=== PATIENT | female | born 1945 | race Caucasian/White ===

== ENCOUNTER 2021-01-24 09:15 | Day surgery (SDC) | payer MEDICARE, BC ==
[~2021-01-24 09:15] MED LIST: FAMOTIDINE 20 MG/2 ML VIAL IV PRN; LACTATED RINGERS 1,000 ML IV SCH; LIDOCAINE 1% (10MG/ML) FOR IV START INTRADERMA PRN
[2021-01-24] MEDS ORDERED: ONDANSETRON 4 MG/2 ML VIAL ONE (09:39)
[2021-01-24 09:58] VITALS: RESP 18
[2021-01-24] MEDS: OXYMETAZOLINE 0.05% NASL SPRAY 1 SPRAY BOTTLE EA NOSTRIL PRN ×5 (10:05→10:25)
[2021-01-24] MEDS ORDERED: DEXAMETHASONE SOD PHOSPHATE 4 MG/ML 1 ML VIAL IVP ONE (10:11)
[2021-01-24] MEDS ORDERED: PROPOFOL 10 MG/ML 20 ML VIAL IV ONE (11:32)
[2021-01-24] MEDS ORDERED: GLYCOPYRROLATE 0.2 MG/ML 2 ML VIAL ONE (11:32)
[2021-01-24] MEDS ORDERED: MIDAZOLAM 2 MG/2 ML VIAL ONE (11:32)
[2021-01-24] MEDS ORDERED: SUCCINYLCHOLINE CHLORIDE 100 MG/5 ML SYR IV ONE (11:32)
[2021-01-24] MEDS ORDERED: LIDOCAINE 2% SYG (PF) 100 MG/5 ML ONE (11:32)
[2021-01-24] MEDS ORDERED: fentaNYL (PF) 50 MCG/ML 2 ML AMP ONE (11:32)
[2021-01-24] MEDS ORDERED: SODIUM CHLORIDE 0.9% 100 ML with ceFAZolin 2,000 MG IV ONE ×2 (11:36)
[2021-01-24] MEDS ORDERED: LIDOCAINE 1%-EPI 1:100,000 20 ML VIAL SQ ONE (11:49)
[2021-01-24] MEDS ORDERED: BACITRACIN ZINC 500 UNIT/GM OINT 28.4 GM TUBE TOPICAL ONE (11:58)
--- NOTE | 2021-01-24 12:18 | P.OP ---
Date of Procedure: 01/24/21 Preoperative Diagnosis: Deviated nasal septum Inferior turbinate hypertrophy Postoperative Diagnosis: Same Procedure(s) Performed: Septoplasty Outfracture and submucous resection of the inferior turbinates Anesthesia: JELANI Surgeon: Brian Huitron Estimated Blood Loss (ml): 5 Pathology: other (Nasal septal bone and cartilage) Condition: stable Disposition: PACU Indications for Procedure: Is a 75-year-old white female who has difficulties with nasal airway obstruction congestion despite medical management including steroid and antihistamine nasal sprays Operative Findings: Nasal septum deviated to the left in the cartilaginous and bony septum inferior turbinate hypertrophy bilaterally Description of Procedure: DESCRIPTION OF PROCEDURE: The patient was brought to the operative suite, placed in the supine position. The patient underwent induction of general anesthesia with oral endotracheal intubation without difficulty. The patient was prepped and draped in the usual aseptic fashion. 1% lidocaine with 1:100,000 epinephrine was infused submucosally on both sides of the nasal septum. While this was taking vasoconstrictive effect, the inferior turbinates were infractured with a Antelope elevator. Partial submucous resection of the inferior turbinates was performed with Coblation device ablating and thus removing a portion of the submucosal soft tissue. The inferior turbinates were then outfractured with a Antelope elevator. A left hemitransfixion incision was then made through the mucoperichondrial. Mucoperiosteal flap on the left elevated. Bony cartilaginous junction was disarticulated and mucoperiosteal flap on the right was elevated. Bony nasoseptal deformity were removed with Onel forceps and an inferior cartilaginous strip was removed, leaving a full 1.5 cm caudal strut. Checking intranasally, this corrected the nasal septal deformities and the hemitransfixion incision was closed with running 4-0 chromic suture. The bilateral Pearl airway splints coated in bacitracin ointment were placed in the nasal cavities and sutured transseptally with 4-0 nylon suture. The patient was then suctioned in an orogastric fashion. The patient was allowed to emerge from general anesthesia, having tolerated the procedure well and was extubated in the operating suite, transferred to postoperative recovery area in satisfactory condition.
[2021-01-24 12:27] VITALS: TEMP 97.9
[2021-01-24 13:49] VITALS: BP 155/68; PULSE 72
== END 2021-01-24 14:10 | disposition home or self-care (01) ==
LOC: OR 09:15
PROVIDERS: ATTEND Otolaryngology
DX: J34.2 Deviated nasal septum (principal); J34.3 Hypertrophy of nasal turbinates; I10 Essential (primary) hypertension; Z79.899 Other long term (current) drug therapy; J30.89 Other allergic rhinitis
CPT/HCPCS: 88300; 30520; 30140; J2250; J1100; J2405; J0690; J2001; J3010; J0330; J2704

== ENCOUNTER 2021-03-01 16:10 | Observation (INO) | payer MEDICARE, BC ==
[2021-03-01] MEDS ORDERED: SODIUM CHLORIDE 0.9% 1,000 ML IV ONE ×2 (18:41→20:41)
--- NOTE | 2021-03-01 18:53 | ED ---
General Adult HPI - General Chief complaint: Recheck/Abnormal Lab/Rx Stated complaint: Hypertension, confusion, not eating Time Seen by Provider: 03/01/21 16:30 Source: patient, family, RN notes reviewed, old records reviewed Mode of arrival: ambulatory Limitations: no limitations - History of Present Illness Initial comments: This is a 75-year-old female who presents emergency department with family. Family states that the patient is altered mentally and has been that way for 2 months. Family states it is been getting progressively worse. Another family member states she had sinus surgery back in October never since then she's been slightly altered and getting progressively worse. There also noted that the patient has been chronically nauseated so she is not eating or drinking and has lost about 15 pounds in the last 2 months. Patient herself says there is no area of pain but does states she doesn't feel like herself but is having diffic ulty explaining what doesn't feel right. Patient denies any chest pain or difficulty breathing shortness of breath. Patient denies any abdominal pain patient denies any recent vomiting or diarrhea. Patient did have a urinary tract infection in the last month or so but was treated for but never rechecked. Family states she's also had CAT scans and they found nothing at [facility]. There have been any episodes of any trauma. - Related Data Home Medications Medication Instructions Recorded Confirmed ALPRAZolam [Xanax] 0.25 mg PO BID 01/22/21 03/01/21 QUEtiapine [SEROquel] 100 mg PO HS 03/01/21 03/01/21 Allergies Allergy/AdvReac Type Severity Reaction Status Date / Time No Known Allergies Allergy Verified 03/01/21 18:45 Review of Systems ROS Statement: Those systems with pertinent positive or pertinent negative responses have been documented in the HPI. ROS Other: All systems not noted in ROS Statement are negative. Past Medical History Past Medical History: No Reported History Additional Past Medical History / Comment(s): recent UTI. sinus issues History of Any Multi-Drug Resistant Organisms: None Reported Additional Past Surgical History / Comment(s): plate upper rt arm Past Anesthesia/Blood Transfusion Reactions: No Reported Reaction Past Psychological History: Anxiety Smoking Status: Never smoker Past Alcohol Use History: None Reported Past Drug Use History: None Reported - Past Family History Mother Family Medical History: No Reported History General Exam - General Exam Comments Initial Comments: GENERAL: Patient is well-developed and well-nourished. Patient is nontoxic and well- hydrated and is in no acute distress. ENT: Neck is soft and supple. No significant lymphadenopathy is noted. Oropharynx is clear. Moist mucous membranes. Neck has full range of motion without eliciting any pain. EYES: The sclera were anicteric and conjunctiva were pink and moist. Extraocular movements were intact and pupils were equal round and reactive to light. Eyelids were unremarkable. PULMONARY: Unlabored respirations. Good breath sounds bilaterally. No audible rales rhonchi or wheezing was noted. CARDIOVASCULAR: There is a regular rate and rhythm without any murmurs gallops or rubs. ABDOMEN: Soft and nontender with normal bowel sounds. SKIN: Skin is clear with no lesions or rashes and otherwise unremarkable. NEUROLOGIC: Patient is alert and oriented x3. Cranial nerves II through XII are grossly intact. Motor and sensory are also intact. Normal speech, volume and content. Symmetrical smile. MUSCULOSKELETAL: Normal extremities with adequate strength and full range of motion. No lower extremity swelling or edema. No calf tenderness. LYMPHATICS: No significant lymphadenopathy is noted PSYCHIATRIC: Normal psychiatric evaluation. Limitations: no limitations Course Vital Signs 03/01/21 16:28 Temperature 97.5 F L Pulse Rate 91 Respiratory 18 Rate Blood Pressure 144/85 O2 Sat by Pulse 97 Oximetry Medical Decision Making - Medical Decision Making EKG shows sinus rhythm with occasional PVC at 70 bpm TN interval 220 QRS is 86 QT interval 370 QTC is 399. Patient's EKG shows no ST segment elevation or T wave abnormalities. Chest x-ray shows no acute abnormality. I went back into the room and the patient remained altered. Family is not comfortable taking the patient home at this time because the symptoms have gotten progressively worse even though they've been following up with the physician. I spoke with Dr. Galloway he agreed to admit the patient and the patient consult neurology. - Lab Data Result diagrams: 03/01/21 20:13 03/01/21 18:54 Lab Results 03/01/21 03/01/21 03/01/21 Range/Units 18:54 18:54 18:54 WBC (3.8-10.6) k/uL RBC (3.80-5.40) m/uL Hgb (11.4-16.0) gm/dL Hct (34.0-46.0) % MCV (80.0-100.0) fL MCH (25.0-35.0) pg MCHC (31.0-37.0) g/dL RDW (11.5-15.5) % Plt Count (150-450) k/uL MPV Neutrophils % % Lymphocytes % % Monocytes % % Eosinophils % % Basophils % % Neutrophils # (1.3-7.7) k/uL Lymphocytes # (1.0-4.8) k/uL Monocytes # (0-1.0) k/uL Eosinophils # (0-0.7) k/uL Basophils # (0-0.2) k/uL PT 10.6 (9.0-12.0) sec INR 1.0 (<1.2) APTT 18.3 L (22.0-30.0) sec Sodium 131 L (137-145) mmol/L Potassium 4.2 (3.5-5.1) mmol/L Chloride 97 L (98-107) mmol/L Carbon Dioxide 24 (22-30) mmol/L Anion Gap 10 mmol/L BUN 12 (7-17) mg/dL Creatinine 0.63 (0.52-1.04) mg/dL Est GFR (CKD-EPI)AfAm >90 (>60 ml/min/1.73 sqM) Est GFR (CKD-EPI)NonAf 87 (>60 ml/min/1.73 sqM) Glucose 113 H (74-99) mg/dL Calcium 9.6 (8.4-10.2) mg/dL Total Bilirubin 0.6 (0.2-1.3) mg/dL AST 27 (14-36) U/L ALT 16 (4-34) U/L Alkaline Phosphatase 140 H (38-126) U/L Troponin I 0.020 (0.000-0.034) ng/mL Total Protein 6.7 (6.3-8.2) g/dL Albumin 4.0 (3.5-5.0) g/dL Urine Color Urine Appearance (Clear) Urine pH (5.0-8.0) Ur Specific Rigby (1.001-1.035) Urine Protein (Negative) Urine Glucose (UA) (Negative) Urine Ketones (Negative) Urine Blood (Negative) Urine Nitrite (Negative) Urine Bilirubin (Negative) Urine Urobilinogen (<2.0) mg/dL Ur Leukocyte Esterase (Negative) Serum Alcohol <10 mg/dL 03/01/21 03/01/21 Range/Units 20:13 20:13 WBC 6.8 (3.8-10.6) k/uL RBC 5.17 (3.80-5.40) m/uL Hgb 15.5 (11.4-16.0) gm/dL Hct 47.6 H (34.0-46.0) % MCV 92.1 (80.0-100.0) fL MCH 30.0 (25.0-35.0) pg MCHC 32.6 (31.0-37.0) g/dL RDW 13.8 (11.5-15.5) % Plt Count 333 (150-450) k/uL MPV 7.9 Neutrophils % 67 % Lymphocytes % 20 % Monocytes % 8 % Eosinophils % 2 % Basophils % 1 % Neutrophils # 4.6 (1.3-7.7) k/uL Lymphocytes # 1.4 (1.0-4.8) k/uL Monocytes # 0.5 (0-1.0) k/uL Eosinophils # 0.1 (0-0.7) k/uL Basophils # 0.1 (0-0.2) k/uL PT (9.0-12.0) sec INR (<1.2) APTT (22.0-30.0) sec Sodium (137-145) mmol/L Potassium (3.5-5.1) mmol/L Chloride (98-107) mmol/L Carbon Dioxide (22-30) mmol/L Anion Gap mmol/L BUN (7-17) mg/dL Creatinine (0.52-1.04) mg/dL Est GFR (CKD-EPI)AfAm (>60 ml/min/1.73 sqM) Est GFR (CKD-EPI)NonAf (>60 ml/min/1.73 sqM) Glucose (74-99) mg/dL Calcium (8.4-10.2) mg/dL Total Bilirubin (0.2-1.3) mg/dL AST (14-36) U/L ALT (4-34) U/L Alkaline Phosphatase (38-126) U/L Troponin I (0.000-0.034) ng/mL Total Protein (6.3-8.2) g/dL Albumin (3.5-5.0) g/dL Urine Color Light Yellow Urine Appearance Clear (Clear) Urine pH 6.5 (5.0-8.0) Ur Specific Rigby 1.004 (1.001-1.035) Urine Protein Negative (Negative) Urine Glucose (UA) Negative (Negative) Urine Ketones Trace H (Negative) Urine Blood Negative (Negative) Urine Nitrite Negative (Negative) Urine Bilirubin Negative (Negative) Urine Urobilinogen <2.0 (<2.0) mg/dL Ur Leukocyte Esterase Negative (Negative) Serum Alcohol mg/dL Disposition Clinical Impression: Altered mental status, Nausea and/or vomiting Disposition: ADMITTED IP TO THIS [facility] Referrals: Ricardo Jimenez MD [Primary Care Provider] - 1-2 days Time of Disposition: 20:41
[2021-03-01 19:17] LABS: ALT 16 U/L (4-34); AST 27 U/L (14-36); African American GFR (CKD) >90 (>60 ml/min/1.73 sqM); Alcohol <10 mg/dL; Alkaline Phosphatase 140 U/L (38-126); Anion Gap 10 mmol/L; Blood Urea Nitrogen 12 mg/dL (7-17); Calcium 9.6 mg/dL (8.4-10.2); Carbon Dioxide 24 mmol/L (22-30); Chloride 97 mmol/L (98-107); Glucose 113 mg/dL (74-99); Non-African American GFR(CKD) 87 (>60 ml/min/1.73 sqM); Potassium 4.2 mmol/L (3.5-5.1); Sodium 131 mmol/L (137-145); Total Bilirubin 0.6 mg/dL (0.2-1.3); Total Protein 6.7 g/dL (6.3-8.2)
[2021-03-01 19:27] LABS: Prothrombin Time 10.6 sec (9.0-12.0)
[2021-03-01 19:30] LABS: Partial Thromboplastin Time 18.3 sec (22.0-30.0)
--- NOTE | 2021-03-01 20:09 | XR ---
EXAMINATION TYPE: XR chest 2V DATE OF EXAM: 03/01/2021 COMPARISON: NONE HISTORY: Altered mental status and weakness. History of hypertension. TECHNIQUE: Frontal and lateral views of the chest are obtained. FINDINGS: Overlying bra strap is present. There is no focal air space opacity, pleural effusion, or p neumothorax seen. Mild underlying emphysematous change may be present seen best on lateral view. The cardiac silhouette size is mildly enlarged with atherosclerotic aorta. The osseous structures are i ntact. IMPRESSION: Mild cardiomegaly without acute pulmonary process.
[2021-03-01 20:27] LABS: Basophils # (A) 0.1 k/uL (0-0.2); Basophils % (A) 1 %; Eosinophils # (A) 0.1 k/uL (0-0.7); Eosinophils % (A) 2 %; HCT 47.6 % (34.0-46.0); HGB 15.5 gm/dL (11.4-16.0); Lymphocytes # (A) 1.4 k/uL (1.0-4.8); Lymphocytes % (A) 20 %; MCHC 32.6 g/dL (31.0-37.0); MCV 92.1 fL (80.0-100.0); Mean Platelet Volume 7.9; Monocytes # (A) 0.5 k/uL (0-1.0); Monocytes % (A) 8 %; Neutrophils # (A) 4.6 k/uL (1.3-7.7); Neutrophils % (A) 67 %; Platelet Count 333 k/uL (150-450); RBC 5.17 m/uL (3.80-5.40); RDW 13.8 % (11.5-15.5); WBC 6.8 k/uL (3.8-10.6)
[2021-03-01 20:32] LABS: Appearance,Urine Clear (Clear); Bilirubin,Urine Negative (Negative); Blood,Urine Negative (Negative); Color,Urine Light Yellow; Glucose,Urine (UA) Negative (Negative); Ketones,Urine Trace (Negative); Leukocyte Esterase,Urine Negative (Negative); Nitrite,Urine Negative (Negative); PH, Urine 6.5 (5.0-8.0); Protein,Urine Negative (Negative); Specific Gravity,Urine 1.004 (1.001-1.035); Urobilinogen,Urine <2.0 mg/dL (<2.0)
[2021-03-01] MEDS ORDERED: ONDANSETRON 4 MG/2 ML VIAL IVP STA (20:39)
[2021-03-01] MEDS ORDERED: LORazepam 2 MG/ML INJ IV STA (20:39)
[2021-03-01 20:51] LABS: Amphetamine Screen,Urine Not Detected (NotDetected); Barbiturate Screen,Urine Not Detected (NotDetected); Benzodiazepines Screen,Urine Detected (NotDetected); Cocaine Screen,Urine Not Detected (NotDetected); Methadone Screen, Urine Not Detected (NotDetected); Opiate Screen,Urine Not Detected (NotDetected); Oxycodone Screen, Urine Not Detected (NotDetected); Phencyclidine Screen,Urine Not Detected (NotDetected); Tricyclic Antidepressant,Urine Not Detected (NotDetected); Urn Cannabinoid Scrn Not Detected (NotDetected)
[2021-03-02] MEDS: ONDANSETRON 4 MG/2 ML VIAL IVP PRN ×2 (03:54→13:23)
--- NOTE | 2021-03-02 11:17 | P.CNNES ---
History of Present Illness Consult date: 03/02/21 Requesting physician: Nick Ramesh Reason for Consult: altered mental status History of Present Illness: 6 is a 75-year-old woman with medical history of recent urinary tract infection who presented emergency department for altered mental status the last 2 months that progressively getting worse. History was obtained from medical record. Per the patient's he stated that her confusion has been going on for the last 2 months but per the ED note and also stated that per another family member it's been going since October 2020 (close to 4 months) and progressively worsening. She has not been the eating or drinking and has lost 15 pounds in the last 2 months. She's having difficulty explaining things. It seems that the patient had a urinary tract infection last 1 month and was treated but never rechecked. Patient stated she was here per her primary wishes. She could not elaborate more. Patient denies of headache,visual disturbance, neck pain or lower back pain. Per the ED note the patient was taken for the same problem and she had a CAT scan at outside facility ([facility]) and there were told that the was normal. Per the patient ED nurse she stated that the she was notified that the patient has been to the outside facility ED ([facility]) multiple times. She is being worked-up as outpatient by her PCP. Patient home medication per EMR is Xanax 0.25 mg a tablet twice a day and Seroquel 100 mg daily at bedtime. Some of the workup in our facility consisted of: Initial vital signs his blood pressure of 144/85, heart rate of 91, respiratory of 18, temperature of 97.5 Fahrenheit oral, pulse ox of 97% at room air. CBC with differential is the hematocrit is 47.6 which is slightly elevated otherwise the rest is unremarkable. Chemistry panel is the sodium is 131 is a mildly low. Serum glucose is 113 which is unremarkable. Calcium is 9.6, AST 27 ALT of 16, creatinine is 0.63 which are unremarkable. Urine drug screen is the benzo is detected (In the ED the patient received Ativan 0.5 mg and patient is on Xanax at home). otherwise breasts are nondetected in the serum alcohol was less than 10. Review of Systems review of system is limited because of her condition but the pertinent positive and negative as per HPI Past Medical History Past Medical History: No Reported History Additional Past Medical History / Comment(s): recent UTI. sinus issues History of Any Multi-Drug Resistant Organisms: None Reported Additional Past Surgical History / Comment(s): plate upper rt arm Past Anesthesia/Blood Transfusion Reactions: No Reported Reaction Past Psychological History: Anxiety Smoking Status: Never smoker Past Alcohol Use History: None Reported Past Drug Use History: None Reported - Past Family History Mother Family Medical History: No Reported History Medications and Allergies Home Medications Medication Instructions Recorded Confirmed Type ALPRAZolam [Xanax] 0.25 mg PO BID 01/22/21 03/01/21 History QUEtiapine [SEROquel] 100 mg PO HS 03/01/21 03/01/21 History Allergies Allergy/AdvReac Type Severity Reaction Status Date / Time No Known Allergies Allergy Verified 03/01/21 18:45 Physical Examination - Vital Signs Vital Signs: Vital Signs Temp Pulse Resp BP Pulse Ox 03/02/21 09:21 85 16 147/85 97 03/02/21 06:14 85 18 133/60 96 03/02/21 03:50 68 18 129/64 96 03/02/21 02:29 69 16 156/78 96 03/01/21 21:34 69 16 148/76 97 03/01/21 16:28 97.5 F L 91 18 144/85 97 Intake and Output 03/01/21 03/02/21 03/02/21 22:59 06:59 14:59 Other: Weight 73.482 kg GENERAL: The patient is lying in bed and is not in acute distress. CHEST: The heart rate is regular rate rhythm. No murmurs to auscultation. No carotid bruit bilaterally. LUNG: Clear to auscultation bilaterally no wheezing noted throughout. Not labored breathing. ABDOMEN/GI: Bowel sounds present in all 4 quadrants. No tenderness to palpation throughout. NEUROLOGICAL: Higher mental function: The patient is awake, alert, oriented to self. She stated she was in the hospital but could not tell which. She initially stated the year is 2021 then within few seconds stated it was 2020. She did not know the month. She is able to correctly stated the name of current state we are in and the country. She is able to name objects correctly (pen, watch, glasses). Patient is following simple commands. No aphasia and no neglect. Cranial nerves: The pupils are round, equal and reactive to light and accommodation. Visual mcgowan are full to confrontation throughout. Extraocular movement is intact no nystagmus is noted. Facial sensation is normal to touch throughout. The facial strength is normal throughout. Hearing is mildly to moderately decreased bilaterally to hand rub. Tongue is midline and moved [id number] without any difficulty. No dysarthria is noted. Shoulder shrug is normal bilaterally. Motor: Gait is unsteady and was not leaning toward one side or other. The strength is 5 over 5 throughout. Normal tone and bulk. Cerebellum: Normal finger to nose heel to thornton bilaterally. But had tremor at end of action of finger to nose. Sensation: Sensation is normal to touch throughout. Reflexes (right/left): 2+ throughout except ankles are 1+ bilaterally. Plantars are mute bilaterally. Results Urine Analysis is negative for urinary tract infection. - Laboratory Findings CBC and BMP: 03/01/21 20:13 03/01/21 18:54 Abnormal Lab Findings: Abnormal Labs 03/01/21 03/01/21 03/01/21 18:54 18:54 20:13 Hct APTT 18.3 L Sodium 131 L Chloride 97 L Glucose 113 H Alkaline Phosphatase 140 H Urine Ketones Trace H U Benzodiazepines Scrn Detected H 03/01/21 20:13 Hct 47.6 H APTT Sodium Chloride Glucose Alkaline Phosphatase Urine Ketones U Benzodiazepines Scrn Assessment and Plan Assessment: Altered mental status for the past 2-4 months (per medical records) and seems possibly due to underlying cognitive impairment/dementia. Rule out any central causes or any reversible causes of altered in mentation. History of urinary tract infection Plan: I ordered MRI of the brain with and without Ordered routine EEG. I'll not start the patient on an antiepileptic drug unless there is epileptiform discharges or seizure on the EEG. Ordered TSH, vitamin B12 and folate levels. Consulted the PT, OT. Every 4 hours neuro checks Placed the patient on fall precaution/risk since was unsteady walking. Please avoid any sedation or narcotic that will affect patient mentation We'll defer the rest of the medical management to the primary team. Upon discharge, recommend the patient to follow-up with neurologist as outpatient and get neuropsych evaluation within 1-2 weeks. The plan is discussed with her nurse. Thank you for the consultation. Reji Ibrahim M.D. Neuro-hospitalist Time with Patient: Greater than 30
[2021-03-02] MEDS ORDERED: ALPRAZolam 0.25 MG TAB PO PRN (12:20)
[2021-03-02] MEDS: PANTOPRAZOLE 40 MG TABLET PO SCH (17:34)
[2021-03-02] MEDS: ENOXAPARIN 40 MG/0.4 ML SYRINGE SQ SCH (17:34)
[2021-03-02] MEDS: METOCLOPRAMIDE 5 MG TAB PO SCH (17:36)
--- NOTE | 2021-03-02 18:05 | P.HPIM ---
History of Present Illness H&P Date: 03/02/21 Chief Complaint: Forgetful History of presenting complaint: This is a pleasant 75-year-old patient who follows with Dr. Jimenez. Patient is accompanied by the and the daughter. Patient was brought in because patient has been becoming increasingly forgetful. Also been complaining of nausea and not able to eat. Initially it was felt that also says started when the patient had sinus surgery back in October by Dr. Dinh. On closer questioning patient daughter noted that patient has been getting forgetful before that. And seems to become worse and progressively getting worse. She was prescribed Seroquel and Xanax but the family doctor's office. Patient tu coleman does not eat. is not sure if she is sleeping. There've been no fever no chills. Patient forgets simple past and often repeats the questions. There is no change in gait. No headaches or dizziness. No head injury reported. She was sent to the ER for further workup. Otherwise patient is able to walk around and do her chores. Review of systems: GEN.: Tired EYES: None HEENT: None NECK: None RESPIRATORY: None CARDIOVASCULAR: None GASTROINTESTINAL: Intermittent nausea GENITOURINARY: None MUSCULOSKELETAL: None LYMPHATICS: None HEMATOLOGICAL: None PSYCHIATRY: None NEUROLOGICAL: Forgetful Past medical history to include: Sinus trouble, anxiety Social history: . No history of alcohol or smoking Family history: Reviewed, noncontributory to presentation Physical examination: VITAL SIGNS: 98.5, 90, 16, 145/81, 97% room air GENERAL: BMI 27, sitting up in bed, comfortable, awake. EYES: Pupils equal. Conjunctiva normal. HEENT: External appearance of nose and ears normal, oral cavity grossly normal. NECK: JVD not raised; masses not palpable. HEART: First and second heart sounds are normal; no edema. LUNGS: Respiratory rate normal; clear to auscultation. ABDOMEN: Soft, nontender, liver spleen not palpable, no masses palpable. PSYCH: Patient is able tonsil simple questions, forgetfull. MUSCULAR skeletal: Evidence of OA NEUROLOGICAL: Cranial nerves grossly intact; no facial asymmetry, power and sensation grossly intact. LYMPHATICS: No lymph nodes palpable in the axilla and neck Assessment and plan: -Major cognitive impairment likely from Alzheimer's dementia Patient for quite some time has been progressively getting worse. She had a sinus surgery in October of this year and symptoms became more prominent there is no fever no chills no history of head injury. No change in her gait. No fever no chills. We'll do an MRI of the brain to look for secondary causes. Check B12 level. Back to Seroquel 50 mg at night and 12.5 mg the morning. Instructed the nurses do a bedside. Mini-cog test -Primary osteoarthritis, bilateral His Tylenol when necessary -Chronic insomnia possibly from dementia Seroquel at night. Care was discussed length with the patient's and daughter the bedside question answered. Dose of Seroquel has been adjusted. Reglan for nausea. Check B12 level. MRI of the brain. Neurology consulted. Start Aricept 10 mg daily at bedtime. Past Medical History Past Medical History: No Reported History Additional Past Medical History / Comment(s): recent UTI. sinus issues History of Any Multi-Drug Resistant Organisms: None Reported Additional Past Surgical History / Comment(s): plate upper rt arm Past Anesthesia/Blood Transfusion Reactions: No Reported Reaction Past Psychological History: Anxiety Smoking Status: Never smoker Past Alcohol Use History: None Reported Past Drug Use History: None Reported - Past Family History Mother Family Medical History: No Reported History Medications and Allergies Home Medications Medication Instructions Recorded Confirmed Type ALPRAZolam [Xanax] 0.25 mg PO BID 01/22/21 03/01/21 History QUEtiapine [SEROquel] 100 mg PO HS 03/01/21 03/01/21 History Allergies Allergy/AdvReac Type Severity Reaction Status Date / Time No Known Allergies Allergy Verified 03/01/21 18:45 Physical Exam Vitals: Vital Signs Temp Pulse Resp BP Pulse Ox 03/02/21 09:21 85 16 147/85 97 03/02/21 06:14 85 18 133/60 96 03/02/21 03:50 68 18 129/64 96 03/02/21 02:29 69 16 156/78 96 03/01/21 21:34 69 16 148/76 97 03/01/21 16:28 97.5 F L 91 18 144/85 97 Intake and Output 03/01/21 03/02/21 03/02/21 22:59 06:59 14:59 Other: Weight 73.482 kg Results CBC & Chem 7: 03/01/21 20:13 03/01/21 18:54 Labs: Abnormal Lab Results - Last 24 Hours (Table) 03/01/21 03/01/21 03/01/21 Range/Units 18:54 18:54 20:13 Hct (34.0-46.0) % APTT 18.3 L (22.0-30.0) sec Sodium 131 L (137-145) mmol/L Chloride 97 L (98-107) mmol/L Glucose 113 H (74-99) mg/dL Alkaline Phosphatase 140 H (38-126) U/L Urine Ketones Trace H (Negative) U Benzodiazepines Scrn Detected H (NotDetected) 03/01/21 Range/Units 20:13 Hct 47.6 H (34.0-46.0) % APTT (22.0-30.0) sec Sodium (137-145) mmol/L Chloride (98-107) mmol/L Glucose (74-99) mg/dL Alkaline Phosphatase (38-126) U/L Urine Ketones (Negative) U Benzodiazepines Scrn (NotDetected)
[2021-03-02] MEDS ORDERED: NALOXONE 0.4 MG/ML 1 ML VIAL IV PRN (18:11)
[2021-03-02] MEDS ORDERED: MAG HYDROX/AL HYDROX/SIMETH 30 ML CUP PO PRN (18:11)
[2021-03-02] MEDS ORDERED: CALCIUM CARBONATE 500 MG CHEWABLE PO PRN (18:11)
[2021-03-02] MEDS ORDERED: MAGNESIUM HYDROXIDE 2,400 MG/10 ML CUP PO PRN (18:11)
[2021-03-02] MEDS ORDERED: LACTULOSE 20 GM/30 ML CUP PO PRN (18:11)
[2021-03-02] MEDS ORDERED: ACETAMINOPHEN TAB 325 MG TAB PO PRN (18:11)
--- NOTE | 2021-03-02 18:26 | EEG ---
ELECTROENCEPHALOGRAM REPORT DATE OF SERVICE: 03/02/2021. CLINICAL HISTORY: This is a 75-year-old woman who presented to the emergency department for altered mental status. The video EEG is obtained to evaluate for seizure epileptiform activity. RELEVANT MEDICATION: The patient is not on any antiepileptic drugs. EEG TYPE: A routine 21 channel EEG is performed with video using the 10/20 electrode placement system. DESCRIPTION: Awake state is only obtained. During the awake state, there is a posterior dominant rhythm of low to moderate voltage that is well modulated, well sustained of 8.5-9 hertz activity. There is no sleep architecture seen. There is no focal slowing. Interictal and ictal is none. ACTIVATION PROCEDURES: Photic stimulation did not evoke a posterior driving response. There is no abnormality during the photic stimulation. Hyperventilation is not performed. CLINICAL INTERPRETATION: This is a normal routine EEG. There are no focal slowing, epileptiform discharges or seizure on the EEG. Clinical correlation is recommended. MONA / LUCILLEN: [id number] /
--- NOTE | 2021-03-02 18:27 | MR ---
EXAMINATION TYPE: MR brain wo/w con DATE OF EXAM: 03/02/2021 COMPARISON: None HISTORY: Altered mental status. CONTRAST: Standard multiplanar, multisequence MRI departmental protocol utilizing 7 mL intravenous Gadavist ozzy olinium contrast. There is cerebral cortical atrophy. There is no mass effect nor midline shift. There is no sign of in tracranial hemorrhage. Diffusion images show no evidence of an acute infarct. On the T2 and FLAIR alexandre ges there is patchy increased signal in the periventricular white matter. These are somewhat coalesce nt and measure up to 1 cm in thickness. Total number of foci is more than 25. The brainstem is intact . Cerebellum is intact. There is no evidence of orbital mass. There is intact corpus callosum. The contrast images show no pathologic enhancement. There is normal enhancement of the venous sinuses . Optic chiasm is normal. There is asymmetric enlargement of the right side of the pituitary gland co mpared to the left. There is downward sloping floor of the right side of the sella turcica. IMPRESSION: Cerebral atrophy. White matter signal changes consistent with chronic small vessel ischemia or demyel inating disease. Asymmetric pituitary gland. This could relate to right side microadenoma.
[2021-03-02 19:33] LABS: Folate, Serum 12.8 ng/mL
[2021-03-02] MEDS ORDERED: QUEtiapine 100 MG TAB PO SCH (21:00)
[2021-03-02] MEDS ORDERED: DONEPEZIL 10 MG TAB PO SCH (21:00)
[2021-03-02] MEDS ORDERED: QUEtiapine 50 MG TAB PO SCH (21:00)
[2021-03-02] MEDS: LORazepam 0.5 MG TAB PO PRN (21:18)
[2021-03-03] MEDS ORDERED: CYANOCOBALAMIN 1,000 MCG/ML 1 ML VIAL IM ONE (07:30)
[2021-03-03 08:03] VITALS: BP 171/68; PULSE 51; RESP 16; TEMP 97.7
[2021-03-03] MEDS: PANTOPRAZOLE 40 MG TABLET PO SCH (08:44)
[2021-03-03] MEDS: METOCLOPRAMIDE 5 MG TAB PO SCH ×2 (08:44→11:30)
[2021-03-03] MEDS: ENOXAPARIN 40 MG/0.4 ML SYRINGE SQ SCH (08:44)
[2021-03-03] MEDS ORDERED: QUEtiapine 25 MG TAB PO SCH (09:00)
[2021-03-03] MEDS: LORazepam 0.5 MG TAB PO PRN (10:34)
[2021-03-03 12:54] VITALS: BMI 26.9
--- NOTE | 2021-03-03 16:09 | P.PN ---
Subjective Progress Note Date: 03/03/21 Patient seen at bedside and she is about the same today. Per the patient nurseseizure-like activity. No new neurological deficits. Objective - Vital Signs Vital signs: Vital Signs Temp 97.7 F 03/03/21 07:00 Pulse 51 L 03/03/21 07:00 Resp 16 03/03/21 07:00 BP 171/68 03/03/21 07:00 Pulse Ox 96 03/03/21 07:00 Intake & Output 03/02/21 03/03/21 03/03/21 18:59 06:59 18:59 Intake Total 350 Balance 350 Weight 73.482 kg Intake: Oral 350 Other: # Voids 2 2 1 - Exam GENERAL: The patient is lying in bed and is not in acute distress. NEUROLOGICAL: Higher mental function: The patient is awake, alert, oriented to self. She st ated she was in the hospital but could not tell which. She initially stated the year is 2021 then within few seconds stated it was 2020. She did not know the month. She is able to correctly stated the name of current state we are in and the country. She is able to name objects correctly (pen, watch, glasses). Patient is following simple commands. No aphasia and no neglect. Cranial nerves: The pupils are round, equal and reactive to light and accommodation. Visual mcgowan are full to confrontation throughout. Extraocular movement is intact no nystagmus is noted. Facial sensation is normal to touch throughout. The facial strength is normal throughout. Hearing is mildly to moderately decreased bilaterally to hand rub. Tongue is midline and moved [id number] without any difficulty. No dysarthria is noted. Shoulder shrug is normal bilaterally. Motor: Gait is unsteady and was not leaning toward one side or other. The strength is 5 over 5 throughout. Normal tone and bulk. Cerebellum: Normal finger to nose heel to thornton bilaterally. But had tremor at end of action of finger to nose. Sensation: Sensation is normal to touch throughout. Reflexes (right/left): 2+ throughout except ankles are 1+ bilaterally. Plantars are mute bilaterally. WORK-UP: Routine EEG on 03/02/2021 is normal. There are no focal slowing, epileptiform discharges or seizure on the EEG. MRI the brain with and without is reported as cerebral atrophy. White matter signal changes consistent with chronic small vessel ischemia or demyelinating disease. Asymmetric pituitary gland. This could relate to a right sided microadenoma Vitamin B12 is 254 which is considered low normal. Folate level is 12.8 which is within normal limits. TSH is 1.150 Which is normal - Labs CBC & Chem 7: 03/01/21 20:13 03/01/21 18:54 Assessment and Plan Assessment: Altered mental status for the past 2-4 months (per medical records) and seems possibly due to underlying cognitive impairment/dementia. Low vitamin B12 can also affect mentation. History of urinary tract infection Plan: Because of the low vitamin B12 I give the patient the vitamin B12 1000 g IM once and started on 1000mcg daily PO starting tomorrow. Consulted the PT, OT. Every 4 hours neuro checks On fall precaution/risk since was unsteady walking. Please avoid any sedation or narcotic that will affect patient mentation We'll defer the rest of the medical management to the primary team. Upon discharge, recommend the patient to follow-up with neurologist as outpatient and get neuropsych evaluation within 1-2 weeks. The plan is discussed with her nurse. Patient is clear from neurological perspective. Reji Ibrahim M.D. Neuro-hospitalist Time with Patient: Less than 30
--- NOTE | 2021-03-03 21:15 | P.DS ---
Providers Date of admission: 03/01/21 20:42 Expected date of discharge: 03/03/21 Attending physician: Beltran Galloway Consults: 03/01/21 20:41 Consult Physician Urgent Consulting Provider: Reji Ibrahim Consult Reason/Comments: Altered mental status Do you want consulting provider notified?: Yes Primary care physician: [facility] Course: Chief Complaint: Forgetful History of presenting complaint: This is a pleasant 75-year-old patient who follows with Dr. Jimenez. Patient is accompanied by the and the daughter. Patient was brought in because patient has been becoming increasingly forgetful. Also been complaining of nausea and not able to eat. Initially it was felt that also says started when the patient had sinus surgery back in October by Dr. Dinh. On closer questioning patient daughter noted that patient has been getting forgetful before that. And seems to become worse and progressively getting worse. She was prescribed Seroquel and Xanax but the family doctor's office. Patient sometimes does not eat. is not sure if she is sleeping. There've been no fever no chills. Patient forgets simple past and often repeats the questions. There is no change in gait. No headaches or dizziness. No head injury reported. She was sent to the ER for further workup. Otherwise patient is able to walk around and do her chores. March 03: Patient is felt to have Alzheimer's dementia. MRi - Showing chronic changes. EEG negative for seizure activity. Patient slept well last night. Medications were discussed with the . And follow-up with neurology as outpatient. Patient be given B12 supplement. Cleared By neurology Discussion and discharge planning more than 35 minutes Consultation: Dr. Ibrahim from neurology Past medical history to include: Sinus trouble, anxiety Social history: . No history of alcohol or smoking Family history: Reviewed, noncontributory to presentation Physical examination: VITAL SIGNS: 97.7, 51, 16, 107/69, 96% room air GENERAL: BMI 27, sitting up in bed, comfortable, awake. EYES: Pupils equal. Conjunctiva normal. NECK: JVD not raised; masses not palpable. HEART: First and second heart sounds are normal; no edema. LUNGS: Respiratory rate normal; clear to auscultation. ABDOMEN: Soft, nontender, liver spleen not palpable, no masses palpable. PSYCH: Patient is able to answer simple questions, forgetfull. MUSCULAR skeletal: Evidence of OA NEUROLOGICAL: Cranial nerves grossly intact; no facial asymmetry, power and sensation grossly intact. INVESTIGATIONS, reviewed in the clinical context: MRI brain: Showing chronic white matter changes EEG: Negative for epilepsy TSH 1.1 B12-254 EKG tracing personally reviewed by me-normal sinus rhythm. PVC Chest x-ray film personally reviewed by me-no infiltrates WBC 6.8 hemoglobin 15.5 platelets 333 sodium 131 potassium 4.2 creatinine 0.63 Urine drug screen positive for benzodiazepine UA negative Assessment and plan: -Major cognitive impairment likely from Alzheimer's dementia Patient for quite some time has been progressively getting worse. She had a sinus surgery in October of this year and symptoms became more prominent there is no fever no chills no history of head injury. No change in her gait. No fever no chills. We'll do an MRI of the brain to look for secondary causes. B12 on the lower side. Seroquel 50 mg at night and 25 mg the daytime as needed. Aricept 10 mg daily at bedtime Instructed the nurses do a bedside. Mini-cog test -Primary osteoarthritis, bilateral His Tylenol when necessary -Chronic insomnia possibly from dementia Seroquel at night. -Hyponatremia -Possible B12 deficiency Supplement added Disposition: Home Plan - Discharge Summary New Discharge Prescriptions: New Donepezil [Aricept] 10 mg PO HS #30 tab QUEtiapine [SEROquel] 25 mg PO DAILY PRN #30 tab PRN Reason: Agitation Famotidine [Pepcid] 20 mg PO BID #60 tablet Changed QUEtiapine [SEROquel] 50 mg PO HS #0 Discontinued ALPRAZolam [Xanax] 0.25 mg PO BID Discharge Medication List Donepezil [Aricept] 10 mg PO HS #30 tab 03/03/21 [Rx] Famotidine [Pepcid] 20 mg PO BID #60 tablet 03/03/21 [Rx] QUEtiapine [SEROquel] 25 mg PO DAILY PRN #30 tab 03/03/21 [Rx] QUEtiapine [SEROquel] 50 mg PO HS #0 03/03/21 [Rx] Follow up Appointment(s)/Referral(s): Ricardo Jimenez MD [Primary Care Provider] - 1-2 days Kovar,Raul, DO [STAFF PHYSICIAN] - 2 Weeks Patient Instructions/Handouts: Alzheimer Disease (DC) Discharge Disposition: HOME SELF-CARE
[2021-03-04] MEDS ORDERED: CYANOCOBALAMIN 500 MCG TAB PO SCH (09:00)
== END 2021-03-03 12:50 | disposition home or self-care (01) ==
LOC: EC 16:10 → 6NMEDSUR 20:42
PROVIDERS: ADMIT Hospitalist; ATTEND Hospitalist
DX: G30.9 Alzheimer's disease, unspecified (principal); M19.91 Primary osteoarthritis, unspecified site; F51.04 Psychophysiologic insomnia; E87.1 Hypo-osmolality and hyponatremia; I10 Essential (primary) hypertension; F02.80 Dementia in other diseases classified elsewhere, unspecified severity, without behavioral disturbance, psychotic disturbance, mood disturbance, and anxiety; R63.4 Abnormal weight loss; Z68.27 Body mass index [BMI] 27.0-27.9, adult; I49.3 Ventricular premature depolarization; F41.9 Anxiety disorder, unspecified; Z79.899 Other long term (current) drug therapy; Z87.440 Personal history of urinary (tract) infections
CPT/HCPCS: 99285; 96376 ×2; 96361 ×3; 96372 ×2; 96374; 96375; 36415; 95816; 93005; 80053; 84443; 82607; 82746; 84484; 85025; 85610; 85730; 81003; 80306; 71046; 70553; G0378 ×3; G0480; J2060; J3420; J2405 ×2; J1650 ×2; A9585; 80320